=== PATIENT | female | born 1965 | race Caucasian/White ===

== ENCOUNTER 2018-10-08 00:18 | Emergency (ER) | payer OTHER ==
[~2018-10-08] VITALS: Ht 167.6 cm; Wt 120.2 kg
[~2018-10-08 00:18] MED LIST: CARAFATE1 G; CARDIZEM60 MG; CLONAZEPAM2 MG PO; DICLOFENAC SODI50 MG PO; EFFEXOR XR75 MG PO; LASIX40 MG; LIPITOR20 MG; METROPOLOL 50MG TP; NABUMETONE500 MG PO; NABUMETONE750 MG PO; PERCOCET 5-3251 EACH PO; PERCOCET 5/3251 TAB PO; PREDNISONE5 MG/DOSE- PO; PROVENTIL S1 ML/5 MG; PULMICORT1 MG/2 ML
[2018-10-08] MEDS ORDERED: TAMS0.4C PO (05:58)
[2018-10-08] MEDS ORDERED: KETO10TA2 PO (05:58)
== END 2018-10-08 06:16 | disposition home or self-care (01) ==
LOC: ER 00:18
DX: M79.662 Pain in left lower leg (principal)